=== PATIENT | female | born 1985 | race African-American/Black ===

== ENCOUNTER 2020-12-21 00:24 | Emergency (ER) | payer OTHER ==
[~2020-12-21] VITALS: Ht 182.9 cm; Wt 196.0 kg
[~2020-12-21 00:24] MED LIST: (None)3.5 GM OP; ALEVE220 MG OR; AMOXICILLIN/CL875 MG OR; AMOXICILLIN500 MG OR; AMOXICILLIN500 MG PO; AMOXICILLIN875 MG OR; AUGMENTIN875TAB PO; BENADRYL 50MG C50 MG OR; BENADRYL1 CRE EX; CEPHALEXIN500 M1 PO; CEPHALEXIN500 MG OR; CORTISPORIN OP7.5 ML OS; DULCOLAX SS100 MG OR; FERR SULFATE325 MG PO; FERROUS SULF325 M2 PO; FLEXERIL OR; HYDROCHLOROT12.5 MG PO; LASIX 10 MG10 MG/TA1 PO; LASIX 20 MG TAB20 MG OR; LEVAQUIN500 MG PO; LORTAB5 OR; LORTAB5 PO; MEDDOSEPAK OR; NAPROSYN500 MG OR; NAPROSYN500 MG PO; NASONEX50 MCG/AC NAB; NO HOME MEDS; NO MEDS; PENICILLN VK500 MG OR; PREDNISONE20 MG PO; PRENATA3 OR; ROBITUSSIN AC10 ML OR; STERAPRED5 MG; ULTRAM50 M1 PO; VICODIN ES1 TAB OR; YASMIN 281 TAB OR; ZITHROMAX250 MG PO; ZITHROMAX500 MG PO; [UNRECOGNIZED DRUG - REMARK]
[2020-12-21] MEDS ORDERED: VITAMIN D350000 UNIT PO (00:45)
[2020-12-21 01:30] LABS: HEMATOCRIT 35.3 % (37.0-47.0); HEMOGLOBIN 10.5 g/dl (12.0-16.0); IMMATURE GRANULOCYTES 0.3 % (0.0-5.0); MEAN CELL VOLUME 75.6 fL CALC (80.0-100.0); MEAN CORPUSCULAR HGB 22.5 pG CALC (26.0-32.0); MEAN CORPUSCULAR HGB CONC 29.7 g/dL CAL (32.0-36.0); NEUT# 4.5 thou/uL (2.00-7.15); RED BLOOD COUNT 4.67 mill/uL (4.20-5.60); RED CELL DISTRI WIDTH 15.7 % (11.5-15.5)
[2020-12-21 01:52] LABS: ALBUMIN 3.7 g/dL (3.2-5.0); ALKALINE PHOSPHATASE 67 u/l (38-126); AMYLASE 65 u/l (30-110); ANION GAP 10 (6-22 (CALC)); BUN 9 mg/dL (7-17); BUN/CREATININE RATIO 15 (12-20 (CALC)); CARBON DIOXIDE 25 mmol/l (22-30); CHLORIDE 107 mmol/l (95-108); CREATININE 0.6 mg/dL (0.5-1.0); GFR > 60 ML/MIN (>=60 (CALC)); GFR FOR AFR.AMER. > 60 ML/MIN (>=60 (CALC)); LIPASE 96 u/l (23-300); POTASSIUM 3.4 mmol/l (3.5-5.1); SGOT/AST 25 u/l (14-36); SODIUM 139 mmol/l (137-146)
[2020-12-21 02:04] LABS: MYOGLOBIN 28 ng/mL (0 - 62)
[2020-12-21 02:06] LABS: BILIRUBIN, TOTAL 0.5 mg/dL (0.0-1.4)
[2020-12-21 02:16] LABS: D-DIMER 0.4 mg/L (0.19-0.60)
[2020-12-21 02:22] LABS: PROTHROMBIN TIME 9.9 SECONDS (9.0-12.5)
[2020-12-21] MEDS ORDERED: TORADOL PO (02:42)
[2020-12-21 02:45] VITALS: BP 122/70
== END 2020-12-21 02:45 | disposition home or self-care (01) | DRG 313 ==
LOC: ED 00:24
PROVIDERS: Family Medicine
DX: R07.89 Other chest pain (principal)